=== PATIENT | female | born 1965 | race Caucasian/White ===

== ENCOUNTER 2020-07-02 21:04 | Emergency (ER) | payer OTHER ==
[~2020-07-02] VITALS: Ht 170.2 cm; Wt 89.0 kg
[~2020-07-02 21:04] MED LIST: CEFD300C37 PO; DIAZ10TA PO; SUMA50TA3 PO; VALA10007 PO; VERA40TA PO; VERAPAMIL
[2020-07-02] MEDS ORDERED: PROCHLORPERAZINE 5 MG/ML, 2ML ONE (21:50)
[2020-07-02] MEDS ORDERED: KETOROLAC 30 MG/1 ML ONE (21:50)
[2020-07-02] MEDS ORDERED: DIPHENHYDRAMINE 50 MG/ML, 1ML ONE (21:50)
[2020-07-02] MEDS ORDERED: ACETAMINOPHEN 500 MG TABLET ONE (21:51)
--- NOTE | 2020-07-02 21:52 | NUR ---
PT C/O TYPICAL MIGRAINE THAT STARTED AT 1200 PM TODAY GRADUALLY. PT REPORTS N/V. PT REPORTS NOT GETTING RELIEF FROM [employer] AND SOME uNKNOWN MEDICATION USUALLY WORKS. PT ROCKING BACK IN FORTH IN THE BED. 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 PT DENIES VISIONS CHANGES. REPORT TO DEJUAN Macias RN.
[2020-07-02 21:59] VITALS: BP 146/104
[2020-07-02] MEDS ORDERED: KETOROLAC 30 MG/1 ML IVPush ONE (22:00)
[2020-07-02] MEDS ORDERED: PROCHLORPERAZINE 5 MG/ML, 2ML IVPush ONE (22:00)
[2020-07-02] MEDS ORDERED: ACETAMINOPHEN 500 MG TABLET PO ONE (22:00)
[2020-07-02] MEDS ORDERED: SODIUM CHLORIDE 0.9% 1,000ML IVBOLUS ONE (22:00)
[2020-07-02] MEDS ORDERED: DIPHENHYDRAMINE 50 MG/ML, 1ML IVPush ONE (22:00)
--- NOTE | 2020-07-02 22:56 | NUR ---
PATIENT STATES MIGRAINE HAS IMPROVED WITH MEDICATIONS AND FLUIDS. PT UP FOR RECHECK
--- NOTE | 2020-07-02 23:11 | NUR ---
Patient/Caregiver given discharge instructions and they have confirmed that they understand the instructions. Patient ambulatory with steady gait.
== END 2020-07-02 23:14 | disposition home or self-care (01) ==
LOC: ED 22:59
DX: G43.909 Migraine, unspecified, not intractable, without status migrainosus (principal); R11.2 Nausea with vomiting, unspecified; I10 Essential (primary) hypertension; Z90.710 Acquired absence of both cervix and uterus
CPT/HCPCS: 96361; 96374; 96375; 99284; J0780; J1200; J7030